=== PATIENT | female | born 1995 | race Hispanic/Latino ===

== ENCOUNTER 2017-04-15 01:17 | Emergency (ER) | payer MEDICAID, OTHER ==
[~2017-04-15] VITALS: Ht 160 cm; Wt 77.3 kg
[2017-04-15 01:21] VITALS: BP 122/77; PULSE 76; RESP 36; O2SAT 97
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
[2017-04-15 04:31] VITALS: BP 108/60; PULSE 65; RESP 16; O2SAT 98
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
== END 2017-04-15 04:32 | disposition home or self-care (01) ==
LOC: SED 01:17
DX: R51 Headache (principal); Y04.0XXA Assault by unarmed brawl or fight, initial encounter; Y93.89 Activity, other specified; Y92.89 Other specified places as the place of occurrence of the external cause; Y99.8 Other external cause status; M54.2 Cervicalgia; R20.0 Anesthesia of skin